=== PATIENT | female | born 2000 ===

== ENCOUNTER 2023-11-29 23:12 | Outpatient (CLI) | payer OTHER, SELFPAY | END 2023-11-29 23:13 | disposition home or self-care (01) | LOC: AMB 12-03 14:54 | PROVIDERS: Visit Provider Family Medicine | DX: F10.129 Alcohol abuse with intoxication, unspecified (principal); R41.82 Altered mental status, unspecified | CPT/HCPCS: A0425; A0427 ==

== ENCOUNTER 2023-11-29 23:52 | Emergency (ER) | payer OTHER, SELFPAY ==
[2023-11-29 23:56] VITALS: BP 129/74; PULSE 85; TEMP 36.1; TEMP 36.5; O2SAT 100
--- NOTE | 2023-11-30 00:02 | ED_ITS ---
HPI - Alcohol General Chief Complaint: Alcohol/Intoxication Stated Complaint: ETOH Time Seen by Provider: 11/29/23 23:58 History of Present Illness HPI narrative: Patient is a 23-year-old woman who goes [employer]. She has been drinking too much tonight and presents after developing nausea and vomiting at home. She has vomited after drinking an undisclosed amount of alcohol and now feels better. No other concerns are noted. She has no recent trauma. She is not . No other concerns. She is not a chronic drinker. Related Data Home Medications Medication Instructions Recorded Confirmed No Known Home Medications 11/29/23 11/29/23 Review of Systems Status of ROS Reports: unobtainable due to mental status Exam Narrative: Exam Narrative: EXAM GENERAL: Patient appears to be intoxicated. EYES: No scleral icterus. LYMPH: No supraclavicular or cervical lymphadenopathy. SKIN: Visible skin seen during exam normal or with benign process only. EXT: No dependent lower extremity pedal edema. HEART: Regular rate and rhythm with no murmurs, rubs, or gallops. LUNGS: Clear to auscultation bilaterally with no crackles or wheezes. ABD: Soft, non tender, non distended. PSYCH: Good eye contact, speech is not pressured. Const: Vital Signs, click to edit/add: Vital Signs - 24 hr 11/29/23 23:56 11/29/23 23:56 Temperature 96.9 F L 97.7 F Pulse Rate [Left P ulse Oximeter] 85 Blood Pressure [Ri ght Upper Arm] 129/74 Pulse Oximetry 100 Oxygen Delivery Me thod Room Air Course Course ED Course: Patient seen and examined will be allowed to rest until she is able to care for herself independently. Vital Signs Vital signs: Initial Vital Signs Temperature 96.9 F L 11/29/23 23:56 Temperature Source Temporal Artery Scan 11/29/23 23:56 Pulse Rate 85 11/29/23 23:56 Blood Pressure 129/74 11/29/23 23:56 Blood Pressure Mean 92 11/29/23 23:56 Pulse Oximetry 100 11/29/23 23:56 Oxygen Delivery Method Room Air 11/29/23 23:56 Vital Signs Temperature 96.9 F L 11/29/23 23:56 Pulse Rate 85 11/29/23 23:56 Blood Pressure 129/74 11/29/23 23:56 Pulse Oximetry 100 11/29/23 23:56 Oxygen Delivery Method Room Air 11/29/23 23:56 Temperature 97.7 F 11/29/23 23:56 Pulse Rate 85 11/29/23 23:56 Blood Pressure 129/74 11/29/23 23:56 Pulse Oximetry 100 11/29/23 23:56 Oxygen Delivery Method Room Air 11/29/23 23:56 MDM - Alcohol MDM Narrative Medical decision making narrative: As above. Differential Diagnosis Differential diagnosis: Likely alcohol withdrawal delirium, hypomagnesemia, alcohol intoxication, alcohol ketoacidosis, alcohol withdrawal syndrome and alcohol withdrawal seizure Discharge Plan Discharge Clinical Impression: Alcoholic intoxication Patient Disposition: Home, Self-Care Condition: Stable Instructions: Alcohol Intoxication (ED) Activity Level: No Restrictions Discharge Diet: Regular Prescriptions: No Action No Known Home Medications Stand Alone Forms: MyHealth Info Instructions
--- NOTE | 2023-11-30 00:13 | ED.NURSE ---
patient ambulatory to the bathroom, steady on feet.
== END 2023-11-30 02:03 | disposition home or self-care (01) ==
LOC: ED 11-30 00:27
PROVIDERS: Emergency Provider Internal Medicine
DX: F10.129 Alcohol abuse with intoxication, unspecified (principal)
CPT/HCPCS: 99283

== ENCOUNTER 2023-12-13 17:04 | Outpatient (CLI) | payer OTHER, SELFPAY ==
--- OUTSIDE RECORDS SUMMARY | 2023-12-18 11:39 | XMS_ITS | Clinical Summary ---
Author Name Unknown Organization [facility] Address [place], [place] [address] Care Team Providers Care Assistant Buyer Name Role Phone None Primary Care Provider Unavailabl e Allergies No known active allergies Medications Medication Sig Dispensed Refills Start Date End Date Status naltrexone (REVIA) 50 mg tablet Take 50 mg by mouth once daily. 0 Active FLUoxetine (PROZAC) 20 mg capsuleIndication s:Major depressive disorder, recurrent, moderate (HC) Take 1 Capsule (20 mg) by mouth once daily. 0 12/17/2023 Active FLUoxetine (PROZAC) 10 mg capsule Take 10 mg by mouth once daily. 0 12/17/2023 Discontinued FLUoxetine (PROZAC) 10 mg capsuleIndication s:Major depressive disorder, recurrent, moderate (HC) Take 1 Capsule (10 mg) by mouth once daily. 30 Capsule 0 12/17/2023 12/17/2023 Discontinued FLUoxetine (PROZAC) 10 mg capsuleIndication s:Major depressive disorder, recurrent, moderate (HC) Take 1 Capsule (10 mg) by mouth once daily. 0 12/17/2023 12/17/2023 Discontinued Active Problems Problem Noted Date Diagnosed Date History of depression 12/17/2023 Adjustment disorder with mixed anxiety and depre ssed mood 12/17/2023 Alcohol abuse 12/17/2023 Resolved Problems Problem Noted Date Diagnosed Date Resolved Date Suicidal ideation 12/17/2023 12/17/2023 Encounters Date Type Department Care Team Description 12/13/2023 11:20 PM DOT COMPLIANCE SPECIALIST - 12/17/2023 12:45 PM DOT COMPLIANCE SPECIALIST Hospital Encounter [facility] [address] [place] [address] Nette Cruz, [facility] Luis E Carson MD Major depressive disorder, recurrent, moderate (HC) (Primary Dx) Discharge Disposition: Home Self Care 12/13/2023 5:56 PM DOT COMPLIANCE SPECIALIST - 12/13/2023 9:49 PM DOT COMPLIANCE SPECIALIST Emergency [facility] [address] [place] [address] Son Duran MD Ball, Julieanne Patricia, MD Depression, unspecified depression type (Primary Dx); Suicidal ideation Discharge Disposition: Psychiatric Hos or Unit 12/13/2023 Travel from Last 3 Months Immunizations Name Administration Dates Next Due Influenza, IIV4 12/16/2023 Social History Tobacco Use Types Packs/Day Years Used Date Smoking Tobacco: Some Days Cigarettes 0 Started: 12/11/2023 Passive Smoke Exposure: Current Smokeless Tobacco: Current Snuff Tobacco Cessation:Ready to Q uit: Yes; Counseling Given: Not Answered Alcohol Use Standard Drinks/Week Comments Yes 14 (1 standard drink = 0.6 oz pure alcohol) 2 drinks a day for the past week PHQ-2 Answer Date Recorded PHQ-2 TOTAL SCORE 0 12/17/2023 Social Connections Answer Date Recorded Frequency of Communication with Friends and Fami ly 4 12/14/2023 Alcohol Use Answer Date Recorded How often do you have a drink containing alcohol ? 4 12/14/2023 How many drinks containing a lcohol do you have on a typical day when you are drinking? 0 12/14/2023 How often do you have five or more drinks on one occasion? 3 12/14/2023 Financial Resource Strain Answer Date R ecorded Difficulty of Paying Living Expenses 3 12/14/2023 Difficulty of Paying Living Expenses Not on file 12/14/2023 Food Insecurity Answer Date Recorded Worried About Running Out of Food in the Last Ye ar 1 12/14/2023 Transportation Needs Answer Date Record ed Lack of Transportation (Medical) 1 12/14/2023 Housing Stability Answer Date Recorded Unable to Pay for Housing in the Last Year 1 12/14/2023 Sex and Gender Information Value Date Recorded Sex Assigned at Not on file Gender Identity Not on file Sexual Orientation Not on file Obstetrics History Last Filed Vital Signs Vital Sign Reading Time Taken Comments Blood Pressure 118/78 12/17/2023 6:23 AM DOT COMPLIANCE SPECIALIST Pulse 75 12/17/2023 6:23 AM DOT COMPLIANCE SPECIALIST Temperature 37.1 ??C (98.7 ??F) 12/17/2023 6:23 AM CS T Respiratory Rate 16 12/17/2023 6:23 AM DOT COMPLIANCE SPECIALIST Oxygen Saturation 98% 12/17/2023 6:23 AM DOT COMPLIANCE SPECIALIST Inhaled Oxygen Concentration - - Weight 73.6 kg (162 lb 3.2 oz) 12/13/2023 11:33 PM DOT COMPLIANCE SPECIALIST Height 154.9 cm (5' 1) 12/13/2023 6:11 PM DOT COMPLIANCE SPECIALIST Body Mass Index 30.65 12/13/2023 6:11 PM DOT COMPLIANCE SPECIALIST Plan of Treatment Not on file Procedures Procedure Name Priority Date/Time Associated Diagnosis Comments TSH Today 12/14/2023 1:44 PM DOT COMPLIANCE SPECIALIST LIPID PANEL Today 12/14/2023 1:44 PM DOT COMPLIANCE SPECIALIST HEPATIC FUNCTION PANEL Today 12/14/2023 1:44 PM DOT COMPLIANCE SPECIALIST HEMOGLOBIN A1C SCREENING Today 12/14/2023 1:44 PM DOT COMPLIANCE SPECIALIST CBC W PLT NO DIFF Today 12/14/2023 1:4 4 PM DOT COMPLIANCE SPECIALIST SODIUM Today 12/14/2023 1:44 PM DOT COMPLIANCE SPECIALIST POTASSIUM Today 12/14/2023 1:44 PM DOT COMPLIANCE SPECIALIST CREATININE Today 12/14/2023 1:44 PM DOT COMPLIANCE SPECIALIST EKG 12 LEAD Routine 12/14/2023 1:39 PM DOT COMPLIANCE SPECIALIST BH STAT DRUG SCREEN STAT 12/14/2023 1 :09 PM DOT COMPLIANCE SPECIALIST URINE STAT 12/13/2023 6:36 PM DOT COMPLIANCE SPECIALIST from Last 3 Months Results * HEMOGLOBIN A1C SCREENING (12/14/2023 1:44 PM DOT COMPLIANCE SPECIALIST) HEMOGLOBIN A1C SCREENING 5.3 <=6.4 % 12/15/2023 8:05 AM DOT COMPLIANCE SPECIALIST [facility] Blood BLOOD SPECIMEN / Unknown Butterfly / Unknown 12/14/2023 1:44 PM DOT COMPLIANCE SPECIALIST 12/14/2023 1:48 PM DOT COMPLIANCE SPECIALIST Narrative [facility] - 12/15/2023 8:05 AM DOT COMPLIANCE SPECIALIST ? (<5.7%) ?Normal ? (5.7% to 6.4%) ? Indicates prediabetes ? (>=6.5%) ? Confirms diabetes Falsely low levels may be seen with: Recent Transfusion, Recent Significant Blood Loss, Hemolytic Diseases, or Falsely elevated levels may be seen with: Untreated Anemias, Splenectomy Tj Villalobos NP CHEMISTRY Performing Organization Address [facility] Co de Phone Number [facility] [address] [place] [address], * TSH (12/14/2023 1:44 PM DOT COMPLIANCE SPECIALIST) Pathologist [facility] TSH 0.45 0.27 - 4.20 uIU/mL 12/14/2023 2:24 PM DOT COMPLIANCE SPECIALIST [facility] Blood BLOOD SPECIMEN / Unknown Butterfly / Unknown 12/14/2023 1:44 PM DOT COMPLIANCE SPECIALIST 12/14/2023 1:48 PM DOT COMPLIANCE SPECIALIST Narrative [facility] - 12/14/2023 2:24 PM DOT COMPLIANCE SPECIALIST In Adults, TSH values between 5.00 and 10.00 uIU/ml do not necessarily indicate the presence of Hypothyroidism. Correlation with clinical findings such as presence of goiter and/or Thyroperoxidase (TPO) Antibody may be helpful. For more information please refer to TAYLER 2004; 291: 228-238. Tj Villalobos NP CHEMISTRY [facility] [place]NAL ZIP [phone] [place] [id number] * CBC W PLT NO DIFF (12/14/2023 1:44 PM DOT COMPLIANCE SPECIALIST) WHITE BLOOD COUNT 6.1 4.5 - 11.0 thou/cu mm 12/14/2023 1:51 PM [facility] RED BLOOD COUNT 4.84 4.00 - 5.20 mil/cu mm 12/14/2023 1:51 PM [facility] HEMOGLOBIN 13.8 12.0 - 16.0 g/dL 12/14/2023 1:51 PM [facility] HEMATOCRIT 40.9 33.0 - 51.0 % 12/14/2023 1:51 PM [facility] MCV 85 80 - 100 fL 12/14/2023 1:51 PM [facility] MCH 28.5 26.0 - 34.0 pg 12/14/2023 1:51 PM [facility] MCHC 33.7 32.0 - 36.0 g/dL 12/14/2023 1:51 PM [facility] RDW 13.7 11.5 - 15.5 % 12/14/2023 1:51 PM [facility] PLATELET COUNT 319 140 - 440 thou/cu mm 12/14/2023 1:51 PM [facility] MPV 10.4 6.5 - 11.0 fL 12/14/2023 1:51 PM [facility] NRBC 0.0 % 12/14/2023 1:51 PM [facility] ABS NRBC 0.0 thou /cu mm 12/14/2023 1:51 PM [facility] Blood BLOOD SPECIMEN / Unknown Butterfly / Unknown 12/14/2023 1:44 PM DOT COMPLIANCE SPECIALIST 12/14/2023 1:48 PM DOT COMPLIANCE SPECIALIST Tj Villalobos NP HEMATOLOGY [facility] [place] ZIP [phone] [place] [address] * SODIUM (12/14/2023 1:44 PM DOT COMPLIANCE SPECIALIST) SODIUM 136 136 - 145 mmol/L 12/14/2023 2:24 PM [facility] Blood BLOOD SPECIMEN / Unknown Butterfly / Unknown 12/14/2023 1:44 PM DOT COMPLIANCE SPECIALIST 12/14/2023 1:48 PM DOT COMPLIANCE SPECIALIST Tj Villalobos NP CHEMISTRY [facility] [place] ZIP [address] [address] [place] [address] * POTASSIUM (12/14/2023 1:44 PM DOT COMPLIANCE SPECIALIST) POTASSIUM 4.4 3.5 - 5.1 mmol/L 12/14/2023 2:24 PM DOT COMPLIANCE SPECIALIST [facility] Blood BLOOD SPECIMEN / Unknown Butterfly / Unknown 12/14/2023 1:44 PM DOT COMPLIANCE SPECIALIST 12/14/2023 1:48 PM DOT COMPLIANCE SPECIALIST Tj Villalobos NP CHEMISTRY Performing Organization Address [facility]/ZIP Co de Phone Number [facility] INTERNAL ZIP [phone] [place] [address] * CREATININE (12/14/2023 1:44 PM DOT COMPLIANCE SPECIALIST) [facility] eGFR >90 >90 mL/min/1.7 3m2 12/14/2023 2:24 PM DOT COMPLIANCE SPECIALIST [facility] Comment:As of 2022, eG FR is calculated by the CKD-EPI creatinine equation without race adjustment. ??eGFR can be influenced by muscle mass, exercise, and diet. ??The reported eGFR is an estimation only and is only applicable if the renal function is stable. CREATININE 0.68 0.50 - 0.90 mg/dL 12/14/2023 2:24 PM DOT COMPLIANCE SPECIALIST [facility] Blood BLOOD SPECIMEN / Unknown Butterfly / Unknown 12/14/2023 1:44 PM DOT COMPLIANCE SPECIALIST 12/14/2023 1:48 PM DOT COMPLIANCE SPECIALIST Tj Villalobos NP CHEMISTRY Performing Organization Address City/[facility]/ZIP Co de Phone Number [facility] INTERNAL ZIP [phone] [place] [phone] * (ABNORMAL) HEPATIC FUNCTION PANEL (12/14/2023 1:44 PM DOT COMPLIANCE SPECIALIST) ALBUMIN 4.9 4.0 - 4.9 g/dL 12/14/2023 2:24 PM [facility] PROTEIN,TOTAL 8.1(H) 6.0 - 8.0 g/dL 12/14/2023 2:24 PM [facility] BILIRUBIN,TOTAL 0.2 0.0 - 1.2 mg/dL 12/14/2023 2:24 PM [facility] BILIRUBIN,DIRECT <0.2 0.0 - 0.3 mg/dL 12/14/2023 2:24 PM [facility] BILIRUBIN,INDIRE CT 12/14/2023 2:24 PM [facility] Comment:Unable to calculate, Direct Bili <0.2 ALK PHOSPHATASE 58 35 - 104 IU/L 12/14/2023 2:24 PM [facility] ALT (SGPT) 13 10 - 35 IU/L 12/14/2023 2:24 PM [facility] AST (SGOT) 18 10 - 35 IU/L 12/14/2023 2:24 PM [facility] Blood BLOOD SPECIMEN / Unknown Butterfly / Unknown 12/14/2023 1:44 PM DOT COMPLIANCE SPECIALIST 12/14/2023 1:48 PM DOT COMPLIANCE SPECIALIST Tj Villalobos NP CHEMISTRY [facility] INTERNAL ZIP [address] [place] [address] * LIPID PANEL (12/14/2023 1:44 PM DOT COMPLIANCE SPECIALIST) CHOLESTEROL,TOTAL 148 100 - 199 mg/dL 12/14/2023 2:24 PM [facility] Comment: Cholesterol, Total Reference Ranges Desirable <200 mg/dL Borderline 200-239 mg/dL High >=240 mg/dL TRIGLYCERIDES 70 <150 mg/dL 12/14/2023 2:24 PM [facility] HDL CHOLESTEROL 53 >40 mg/dL 2:24 PM DOT COMPLIANCE SPECIALIST [facility] NON-HDL CHOLESTEROL 95 <145 mg/dl 12/14/2023 2:24 PM DOT COMPLIANCE SPECIALIST [facility] CHOL/HDL RATIO 2.79 <4.50 12/14/2023 2:24 PM DOT COMPLIANCE SPECIALIST [facility] LDL CHOLESTEROL 81 <=130 mg/dL 12/14/2023 2:24 PM DOT COMPLIANCE SPECIALIST [facility] VLDL CHOLESTEROL 14 <=30 mg/dL 12/14/2023 2:24 PM DOT COMPLIANCE SPECIALIST [facility] PROVIDER ORDERED STATUS RANDOM 12/14/2023 2:24 PM DOT COMPLIANCE SPECIALIST [facility] Blood BLOOD SPECIMEN / Unknown Butterfly / Unknown 12/14/2023 1:44 PM DOT COMPLIANCE SPECIALIST 12/14/2023 1:48 PM DOT COMPLIANCE SPECIALIST Tj Villalobos FLANGE MACHINE OPERATOR CHEMISTRY [facility] INTERNAL ZIP [address] [place] [address] * EKG 12 LEAD (12/14/2023 1:39 PM DOT COMPLIANCE SPECIALIST) Pathologist [facility] Interpretation Normal sinus rhythm with sinus arrhythmia Normal ECG No previous ECGs available BEYOND NOW Ventricular Rate 69 BPM BEYOND NOW Atrial Rate 69 BPM BEYOND NOW P-R Interval 118 ms BEYOND NOW QRS Duration 68 ms BEYOND NOW QT 354 ms BEYOND NOW QTc 379 ms BEYOND NOW P [place] 38 degrees BEYOND NOW R [place] 27 degrees BEYOND NOW T [place] 25 degrees BEYOND NOW 12/14/2023 1:39 PM DOT COMPLIANCE SPECIALIST 12/15/2023 6:03 PM DOT COMPLIANCE SPECIALIST Nette Cruz [facility] EKG ORD BEYOND NOW [place], [place] * (ABNORMAL) COMPREHENSIVE URINE DRUG SCREEN (12/14/2023 1:09 PM DOT COMPLIANCE SPECIALIST) ACETAMINOPHEN URINE NEG <=10 mcg/mL 12/15/2023 4:44 AM DOT COMPLIANCE SPECIALIST [facility] AMPHETAMINE URINE NEG <=500 ng/mL 12/15/2023 4:[address] [facility] BARBITURATE URINE NEG <=200 ng/mL 12/15/2023 4:[address] [facility] BENZODIAZEPINE URINE NEG <=100 ng/mL 12/15/2023 4:[address] [facility] BUPRENORPHRINE URINE NEG <=5 ng/mL 12/15/2023 4:[address] [facility] COCAINE METAB URINE NEG <=300 ng/mL 12/15/2023 4:[address] [facility] ETHANOL URINE NEG <=10 mg/dL 12/15/2023 4:[address] [facility] FENTANYL URINE NEG <=4 ng/mL 12/15/2023 4:[address] [facility] METHADONE URINE NEG <=300 ng/mL 12/15/2023 4:[address] [facility] OPIATES URINE NEG <=300 ng/mL 12/15/2023 4:[address] [facility] OXYCODONE URINE NEG <=100 ng/mL 12/15/2023 4:[address] [facility] PCP URINE NEG <=25 ng/mL 12/15/2023 4:[address] [facility] SALICYLATE URINE NEG <=10 mg/dL 12/15/2023 4:[address] [facility] THC 50 URINE POS(A) <=50 ng/mL 12/15/2023 4:[address] [facility] MASS SPECTROMETRY URINE See Below 12/15/2023 4:[address] [facility] Comment:No other basic or ne utral drugs found. Urine URINE SPECIMEN / Unknown Non-Blood / Unknown 12/14/2023 1:09 PM DOT COMPLIANCE SPECIALIST 12/14/2023 1:[address] [facility] - 12/15/2023 4:44 AM DOT COMPLIANCE SPECIALIST Release to patient->Immediate Tj Villalobos NP URINE [facility] [address] [facility] [address] [place] [address], * URINE (12/13/2023 6:36 PM DOT COMPLIANCE SPECIALIST) ,URIN E Negative Negative 12/13/2023 6:48 PM DOT COMPLIANCE SPECIALIST [facility] Urine URINE SPECIMEN / Unknown Non-Blood / Unknown 12/13/2023 6:36 PM DOT COMPLIANCE SPECIALIST 12/13/2023 6:40 PM DOT COMPLIANCE SPECIALIST Son Duran MD URINE [facility] [address] [place] [address] from Last 3 Months Advance Directives Latest Code Status on File Code Status Date Activated Date Inactivated Comments Full Code 12/14/2023 1:02 AM 12/17/2023 3:51 PM Question Answer Comments Code Status Discussion: Not Discussed Care Teams Assistant Buyer Relationship Specialty Start Date End Date None . PCP - General 12/13/23
== END 2023-12-13 17:05 | disposition home or self-care (01) ==
LOC: AMB 12-18 11:36
PROVIDERS: Visit Provider Emergency Medicine
DX: R45.851 Suicidal ideations (principal)
CPT/HCPCS: A0425; A0429

== ENCOUNTER 2024-01-08 17:00 | Outpatient (CLI) | payer OTHER, SELFPAY | END 2024-01-08 17:01 | disposition home or self-care (01) | LOC: AMB 01-14 11:43 | PROVIDERS: Visit Provider Student in an Organized Health Care Education/Training Program | DX: R45.851 Suicidal ideations (principal) | CPT/HCPCS: A0425; A0429 ==

== ENCOUNTER 2024-01-16 03:16 | Outpatient (CLI) | payer OTHER, SELFPAY | END 2024-01-16 03:17 | disposition home or self-care (01) | LOC: AMB 01-19 07:45 | PROVIDERS: Visit Provider Family Medicine | DX: F10.129 Alcohol abuse with intoxication, unspecified (principal) | CPT/HCPCS: A0425; A0427 ==

== ENCOUNTER 2024-01-16 03:41 | Emergency (ER) | payer OTHER, SELFPAY ==
[2024-01-16] VITALS (52 sets, daily range): BP systolic 96–123; BP diastolic 45–83; PULSE 78–101; RESP 14–18; TEMP 36.4–37.2; O2SAT 97–100
--- NOTE | 2024-01-16 03:54 | ED_ITS ---
HPI - General Adult General Chief complaint: Overdose <Tory Navas MD - Last Filed: 01/17/24 23:50> Stated complaint: overdose <Tory Navas MD - Last Filed: 01/17/24 23:50> Time Seen by Provider: 01/16/24 03:49 <Tory Navas MD - Last Filed: 01/17/24 23:50> Source: patient and EMS <Tory Navas MD - Last Filed: 01/17/24 23:50> Mode of arrival: EMS <Tory Navas MD - Last Filed: 01/17/24 23:50> History of Present Illness HPI narrative: 23-year-old female presents to the emergency department by EMS for evaluation of alcohol intoxication with intentional overdose. Apparently patient was evaluated by campus security earlier in the day where she was heavily intoxicated with alcohol. They could not find her alcohol stash. She was doing pretty well so they left her in her soon housing. She continue drinking, found by EMS to have 1.75 L bottle of vodka nearly gone. She does not confess how much she drink recently. They also found an empty bottle of Tessalon Perles, unknown ingestion time. She reports that she took these with intent of self-harm. She could not have taken more than 8 tablets. She may have also taken ibuprofen but is cryptic in her confession is regarding this. She reports that she is a student from [employer], she is in her 1st year of college here, she does not yet have a major. When I ask about how school is going grades, etc., she becomes quiet again. She initially declines to answer about questions with her family, relationships and other potential social stressors. I review her chart and see that she was in the ED with alcohol intoxication about 2 months ago also. It sounds as though she has been drinking heavily. She denies fever, injury or trauma. She denies prior history of suicide attempt or mental health hospitalization. Denies that she takes any medications. She attends [employer]. Denies illicit drugs to me. EMS placed an IV line and started fluids, did not administer any medications. They reported GCS of 13-14. No other signs of drugs, trauma or paraphernalia noted at the scene. Past medical history benign per her report, no major long-term health problems. Denies chance of . Denies drug use, 1st overdose attempt. No family in the area, all overseas. ROS unreliable, patient guarded with her answers. <Tory Navas MD - Last Filed: 01/17/24 23:50> Related Data Home medications: Home Medications Medication Instructions Recorded Confirmed No Known Home Medications 11/29/23 01/17/24 <Tory Navas MD - Last Filed: 01/17/24 23:50> Allergies/adverse reactions: Allergies Allergy/AdvReac Type Severity Reaction Status Date / Time No Known Drug Allergies Allergy Verified 01/17/24 05:45 <Tory Navas MD - Last Filed: 01/17/24 23:50> [facility] Social History: Social History Smoking Status: Never smoker How often do you have a drink containing alcohol: 4 or more times a week How many standard drinks containing alcohol do you have on a typical day: 5 or 6 How often do you have six or more drinks on one occasion: Monthly AUDIT-C Alcohol total score: 8 Non-prescribed substance use: denies use <Tory Navas MD - Last Filed: 01/17/24 23:50> Exam Const: Vital Signs, click to edit/add: Vital Signs - 24 hr 01/16/24 03:49 01/16/24 04:00 01/16/24 04:01 Temperature 97.5 F L Pulse Rate 91 96 Pulse Rate [Pulse Oximeter] 98 Respiratory Rate 14 Blood Pressure 97/68 Blood Pressure [Ri ght Upper Arm] 123/83 Pulse Oximetry 100 99 99 Oxygen Delivery Me thod Room Air 01/16/24 04:02 01/16/24 04:26 01/16/24 04:30 Temperature Pulse Rate 95 97 100 Pulse Rate [Pulse Oximeter] Respiratory Rate Blood Pressure Blood Pressure [Ri ght Upper Arm] Pulse Oximetry 99 98 99 Oxygen Delivery Me thod 01/16/24 04:35 01/16/24 04:36 01/16/24 04:46 Temperature Pulse Rate 98 95 Pulse Rate [Pulse Oximeter] Respiratory Rate Blood Pressure 123/77 113/57 L Blood Pressure [Ri ght Upper Arm] Pulse Oximetry 97 98 Oxygen Delivery Me thod 01/16/24 05:01 01/16/24 05:16 01/16/24 05:31 Temperature Pulse Rate Pulse Rate [Pulse Oximeter] Respiratory Rate Blood Pressure 101/62 104/49 L 110/52 L Blood Pressure [Ri ght Upper Arm] Pulse Oximetry Oxygen Delivery Me thod 01/16/24 05:46 01/16/24 06:01 01/16/24 06:16 Temperature Pulse Rate Pulse Rate [Pulse Oximeter] Respiratory Rate Blood Pressure 105/48 L 101/54 L 105/53 L Blood Pressure [Ri ght Upper Arm] Pulse Oximetry Oxygen Delivery Me thod 01/16/24 06:31 01/16/24 06:46 01/16/24 07:01 Temperature Pulse Rate Pulse Rate [Pulse Oximeter] Respiratory Rate Blood Pressure 103/53 L 105/57 L 99/45 L Blood Pressure [Ri ght Upper Arm] Pulse Oximetry Oxygen Delivery Me thod 01/16/24 07:16 01/16/24 07:31 01/16/24 07:47 Temperature Pulse Rate Pulse Rate [Pulse Oximeter] Respiratory Rate Blood Pressure 96/50 L 96/52 L 105/61 Blood Pressure [Ri ght Upper Arm] Pulse Oximetry Oxygen Delivery Me thod 01/16/24 08:01 01/16/24 08:16 01/16/24 08:23 Temperature Pulse Rate 86 Pulse Rate [Pulse Oximeter] Respiratory Rate Blood Pressure 102/58 L 108/65 110/65 Blood Pressure [Ri ght Upper Arm] Pulse Oximetry 100 Oxygen Delivery Me thod 01/16/24 08:25 01/16/24 08:26 01/16/24 08:30 Temperature 98.2 F Pulse Rate 101 H 81 Pulse Rate [Pulse Oximeter] 84 Respiratory Rate 16 Blood Pressure Blood Pressure [Ri ght Upper Arm] 110/65 Pulse Oximetry 100 99 98 Oxygen Delivery Me thod Room Air 01/16/24 08:34 01/16/24 08:45 01/16/24 08:49 Temperature Pulse Rate 80 90 81 Pulse Rate [Pulse Oximeter] Respiratory Rate Blood Pressure Blood Pressure [Ri ght Upper Arm] Pulse Oximetry 98 99 99 Oxygen Delivery Me thod 01/16/24 09:00 01/16/24 09:04 01/16/24 09:15 Temperature Pulse Rate 86 79 84 Pulse Rate [Pulse Oximeter] Respiratory Rate Blood Pressure Blood Pressure [Ri ght Upper Arm] Pulse Oximetry 99 99 99 Oxygen Delivery Me thod 01/16/24 09:30 01/16/24 09:45 01/16/24 10:00 Temperature Pulse Rate 83 85 79 Pulse Rate [Pulse Oximeter] Respiratory Rate Blood Pressure Blood Pressure [Ri ght Upper Arm] Pulse Oximetry 99 99 99 Oxygen Delivery Me thod 01/16/24 10:15 01/16/24 10:30 01/16/24 10:34 Temperature Pulse Rate 87 84 100 Pulse Rate [Pulse Oximeter] Respiratory Rate Blood Pressure 119/70 Blood Pressure [Ri ght Upper Arm] Pulse Oximetry 98 99 100 Oxygen Delivery Me thod 01/16/24 10:35 01/16/24 10:45 01/16/24 11:00 Temperature 99.0 F Pulse Rate 82 87 Pulse Rate [Pulse Oximeter] 89 Respiratory Rate 18 Blood Pressure Blood Pressure [Ri ght Upper Arm] 119/70 Pulse Oximetry 100 99 99 Oxygen Delivery Me thod Room Air 01/16/24 11:15 01/16/24 11:30 01/16/24 11:45 Temperature Pulse Rate 100 101 H 92 Pulse Rate [Pulse Oximeter] Respiratory Rate Blood Pressure Blood Pressure [Ri ght Upper Arm] Pulse Oximetry 99 98 99 Oxygen Delivery Me thod 01/16/24 12:00 01/16/24 12:15 01/16/24 12:30 Temperature Pulse Rate 80 78 85 Pulse Rate [Pulse Oximeter] Respiratory Rate Blood Pressure Blood Pressure [Ri ght Upper Arm] Pulse Oximetry 99 98 99 Oxygen Delivery Me thod 01/16/24 12:45 01/16/24 12:57 01/16/24 12:57 Temperature 98.5 F Pulse Rate 81 81 Pulse Rate [Pulse Oximeter] 92 Respiratory Rate 15 Blood Pressure 103/66 Blood Pressure [Ri ght Upper Arm] 103/66 Pulse Oximetry 99 99 100 Oxygen Delivery Me thod Room Air 01/16/24 12:57 01/16/24 13:00 01/16/24 13:15 Temperature Pulse Rate 81 83 78 Pulse Rate [Pulse Oximeter] Respiratory Rate Blood Pressure 103/66 Blood Pressure [Ri ght Upper Arm] Pulse Oximetry 100 98 98 Oxygen Delivery Me thod <Tory Navas MD - Last Filed: 01/17/24 23:50> Vital Signs, click to edit/add: Vital Signs - 24 hr 01/16/24 03:49 01/16/24 04:00 01/16/24 04:01 Temperature 97.5 F L Pulse Rate 91 96 Pulse Rate [Pulse Oximeter] 98 Respiratory Rate 14 Blood Pressure 97/68 Blood Pressure [Ri ght Upper Arm] 123/83 Pulse Oximetry 100 99 99 Oxygen Delivery Me thod Room Air 01/16/24 04:02 01/16/24 04:26 01/16/24 04:30 Temperature Pulse Rate 95 97 100 Pulse Rate [Pulse Oximeter] Respiratory Rate Blood Pressure Blood Pressure [Ri ght Upper Arm] Pulse Oximetry 99 98 99 Oxygen Delivery Pa thod 01/16/24 04:35 01/16/24 04:36 01/16/24 04:46 Temperature Pulse Rate 98 95 Pulse Rate [Pulse Oximeter] Respiratory Rate Blood Pressure 123/77 113/57 L Blood Pressure [Ri ght Upper Arm] Pulse Oximetry 97 98 Oxygen Delivery Pa thod 01/16/24 05:01 01/16/24 05:16 01/16/24 05:31 Temperature Pulse Rate Pulse Rate [Pulse Oximeter] Respiratory Rate Blood Pressure 101/62 104/49 L 110/52 L Blood Pressure [Ri ght Upper Arm] Pulse Oximetry Oxygen Delivery Pa thod 01/16/24 05:46 01/16/24 06:01 01/16/24 06:16 Temperature Pulse Rate Pulse Rate [Pulse Oximeter] Respiratory Rate Blood Pressure 105/48 L 101/54 L 105/53 L Blood Pressure [Ri ght Upper Arm] Pulse Oximetry Oxygen Delivery Pa thod 01/16/24 06:31 01/16/24 06:46 01/16/24 07:01 Temperature Pulse Rate Pulse Rate [Pulse Oximeter] Respiratory Rate Blood Pressure 103/53 L 105/57 L 99/45 L Blood Pressure [Ri ght Upper Arm] Pulse Oximetry Oxygen Delivery Pa thod 01/16/24 07:16 01/16/24 07:31 01/16/24 07:47 Temperature Pulse Rate Pulse Rate [Pulse Oximeter] Respiratory Rate Blood Pressure 96/50 L 96/52 L 105/61 Blood Pressure [Ri ght Upper Arm] Pulse Oximetry Oxygen Delivery Pa thod 01/16/24 08:01 01/16/24 08:16 01/16/24 08:23 Temperature Pulse Rate 86 Pulse Rate [Pulse Oximeter] Respiratory Rate Blood Pressure 102/58 L 108/65 110/65 Blood Pressure [Ri ght Upper Arm] Pulse Oximetry 100 Oxygen Delivery Me thod 01/16/24 08:25 01/16/24 08:26 01/16/24 08:30 Temperature 98.2 F Pulse Rate 101 H 81 Pulse Rate [Pulse Oximeter] 84 Respiratory Rate 16 Blood Pressure Blood Pressure [Ri ght Upper Arm] 110/65 Pulse Oximetry 100 99 98 Oxygen Delivery Me od Room Air 01/16/24 08:34 01/16/24 08:45 01/16/24 08:49 Temperature Pulse Rate 80 90 81 Pulse Rate [Pulse Oximeter] Respiratory Rate Blood Pressure Blood Pressure [Ri ght Upper Arm] Pulse Oximetry 98 99 99 Oxygen Delivery Pa thod 01/16/24 09:00 01/16/24 09:04 01/16/24 09:15 Temperature Pulse Rate 86 79 84 Pulse Rate [Pulse Oximeter] Respiratory Rate Blood Pressure Blood Pressure [Ri ght Upper Arm] Pulse Oximetry 99 99 99 Oxygen Delivery Pa thod 01/16/24 09:30 01/16/24 09:45 01/16/24 10:00 Temperature Pulse Rate 83 85 79 Pulse Rate [Pulse Oximeter] Respiratory Rate Blood Pressure Blood Pressure [Ri ght Upper Arm] Pulse Oximetry 99 99 99 Oxygen Delivery Pa thod 01/16/24 10:15 01/16/24 10:30 01/16/24 10:34 Temperature Pulse Rate 87 84 100 Pulse Rate [Pulse Oximeter] Respiratory Rate Blood Pressure 119/70 Blood Pressure [Ri ght Upper Arm] Pulse Oximetry 98 99 100 Oxygen Delivery Me thod 01/16/24 10:35 01/16/24 10:45 01/16/24 11:00 Temperature 99.0 F Pulse Rate 82 87 Pulse Rate [Pulse Oximeter] 89 Respiratory Rate 18 Blood Pressure Blood Pressure [Ri ght Upper Arm] 119/70 Pulse Oximetry 100 99 99 Oxygen Delivery Me thod Room Air 01/16/24 11:15 01/16/24 11:30 01/16/24 11:45 Temperature Pulse Rate 100 101 H 92 Pulse Rate [Pulse Oximeter] Respiratory Rate Blood Pressure Blood Pressure [Ri ght Upper Arm] Pulse Oximetry 99 98 99 Oxygen Delivery Me thod 01/16/24 12:00 01/16/24 12:15 01/16/24 12:30 Temperature Pulse Rate 80 78 85 Pulse Rate [Pulse Oximeter] Respiratory Rate Blood Pressure Blood Pressure [Ri ght Upper Arm] Pulse Oximetry 99 98 99 Oxygen Delivery Me thod 01/16/24 12:45 01/16/24 12:57 01/16/24 12:57 Temperature 98.5 F Pulse Rate 81 81 Pulse Rate [Pulse Oximeter] 92 Respiratory Rate 15 Blood Pressure 103/66 Blood Pressure [Ri ght Upper Arm] 103/66 Pulse Oximetry 99 99 100 Oxygen Delivery Me thod Room Air 01/16/24 12:57 01/16/24 13:00 01/16/24 13:15 Temperature Pulse Rate 81 83 78 Pulse Rate [Pulse Oximeter] Respiratory Rate Blood Pressure 103/66 Blood Pressure [Ri ght Upper Arm] Pulse Oximetry 100 98 98 Oxygen Delivery Me thod <John Chandler DO - Last Filed: 01/16/24 13:38> Documenting provider has reviewed patient's vital signs: yes <Tory Navas MD - Last Filed: 01/17/24 23:50> Common normals: alert <Tory Navas MD - Last Filed: 01/17/24 23:50> Other: Intoxicated but will answer questions on her terms. GCS for me is 14. Makes good eye contact but seems to deliberately ignore certain questions but will answer others quickly as expected. Appears well-nourished, well-hydrated with good hygiene. <Tory Navas MD - Last Filed: 01/17/24 23:50> HENMT: Common normals: normocephalic and head/scalp atraumatic <Tory Navas MD - Last Filed: 01/17/24 23:50> Head and scalp: normocephalic and atraumatic <Tory Navas MD - Last Filed: 01/17/24 23:50> Face and sinus: normal facial exam <Tory Navas MD - Last Filed: 01/17/24 23:50> Mouth: oral and palatal mucosa normal <MD Rashid Blackwell Last Filed: 01/17/24 23:50> Throat: posterior oropharynx normal <MD Rashid Blackwell Last Filed: 01/17/24 23:50> Eye: Common normals: PERRL and conjunctivae normal <MD Rashid Blackwell Last Filed: 01/17/24 23:50> General eye: normal appearance of both eyes <MD Rashid Blackwell Last Filed: 01/17/24 23:50> Conjunctiva: conjunctiva(e) normal <MD Rashid Blackwell Last Filed: 01/17/24 23:50> Pupil: PERRL <MD Rashid Blackwell Last Filed: 01/17/24 23:50> Neck & C-Spine: Common normals: full ROM and no lymphadenopathy <MD Rashid Blackwell Last Filed: 01/17/24 23:50> Resp: Common normals: normal respiratory effort, no use of accessory muscles and clear to auscultation bilaterally <MD Rashid Blackwell Last Filed: 01/17/24 23:50> Effort & inspection: able to speak in complete sentences <MD Rashid Blackwell Last Filed: 01/17/24 23:50> Auscultation: clear to auscultation bilaterally <MD Rashid Blackwell Last Filed: 01/17/24 23:50> Cardio: Common normals: regular rate, regular rhythm, S1 normal heart sound, S2 normal heart sound and no murmurs <MD Rashid Blackwell Last Filed: 01/17/24 23:50> Rate: regular rate <MD Rashid Blackwell Last Filed: 01/17/24 23:50> Rhythm: regular rhythm <MD Rashid Blackwell Last Filed: 01/17/24 23:50> Heart sounds: S1 normal and S2 normal <MD Rashid Blackwell Last Filed: 01/17/24 23:50> GI: Common normals: Normal to inspection, nondistended, normoactive bowel sounds present, soft to palpation, non-tender, no hepatosplenomegaly and no masses <Tory Navas MD - Last Filed: 01/17/24 23:50> Palpation: soft and no hepatosplenomegaly <Tory Navas MD - Last Filed: 01/17/24 23:50> Extremity: Common normals: normal to inspection and normal capillary refill <Tory Navas MD - Last Filed: 01/17/24 23:50> Neuro: Common normals: moves all extremities and no focal motor deficits <Tory Navas MD - Last Filed: 01/17/24 23:50> Sensorium/orientation: alert <Tory Navas MD - Last Filed: 01/17/24 23:50> Cranial nerves: CN normal except as noted <Tory Navas MD - Last Filed: 01/17/24 23:50> Speech: speech normal <Tory Navas MD - Last Filed: 01/17/24 23:50> Motor exam: no tremor noted <Tory Navas MD - Last Filed: 01/17/24 23:50> Psych: Appearance: grossly normal <Tory Navas MD - Last Filed: 01/17/24 23:50> Other: Intoxicated, guarded. Difficult to assess affect insight in her intoxicated state. <Tory Navas MD - Last Filed: 01/17/24 23:50> Skin: Common normals: no rashes or lesions noted <Tory Navas MD - Last Filed: 01/17/24 23:50> Narrative: No signs of self injury or trauma. <Tory Navas MD - Last Filed: 01/17/24 23:50> General skin exam: no rashes or lesions noted <Tory Navas MD - Last Filed: 01/17/24 23:50> Course Course ED Course: Marked alcohol intoxication with possible suicide attempt. Ingestion of Tessalon, heavy amounts of alcohol and possibly ibuprofen. She is very guarded and I do not think she would fully disclose all potential substances. Will placed on cardiac cath tech, EKG, basic labs. EMS team did contact poison Control and they said that watch for QT prolongation as their only concern. Will likely be too intoxicated to perform telehealth assessment until daylight hours. Will give 4 mg of Zofran to prevent vomiting and start 1 L of normal saline. Update: Initial EKG showing no signs of QT prolongation. <Tory Navas MD - Last Filed: 01/17/24 23:50> Vital Signs Vital signs: Initial Vital Signs Temperature 97.5 F L 01/16/24 03:49 Temperature Source Temporal Artery Scan 01/16/24 03:49 Pulse Rate 98 01/16/24 03:49 Respiratory Rate 14 01/16/24 03:49 Blood Pressure 123/83 01/16/24 03:49 Blood Pressure Mean 96 01/16/24 03:49 Blood Pressure Position Supine 01/16/24 03:49 Pulse Oximetry 100 01/16/24 03:49 Oxygen Delivery Method Room Air 01/16/24 03:49 Vital Signs Temperature 97.5 F L 01/16/24 03:49 Pulse Rate 98 01/16/24 03:49 Respiratory Rate 14 01/16/24 03:49 Blood Pressure 123/83 01/16/24 03:49 Pulse Oximetry 100 01/16/24 03:49 Oxygen Delivery Method Room Air 01/16/24 03:49 Temperature 98.5 F 01/16/24 12:57 Pulse Rate 78 01/16/24 13:15 Respiratory Rate 15 01/16/24 12:57 Blood Pressure 103/66 01/16/24 12:57 Pulse Oximetry 98 01/16/24 13:15 Oxygen Delivery Method Room Air 01/16/24 12:57 <Tory Navas MD - Last Filed: 01/17/24 23:50> Initial Vital Signs Temperature 97.5 F L 01/16/24 03:49 Temperature Source Temporal Artery Scan 01/16/24 03:49 Pulse Rate 98 01/16/24 03:49 Respiratory Rate 14 01/16/24 03:49 Blood Pressure 123/83 01/16/24 03:49 Blood Pressure Mean 96 01/16/24 03:49 Blood Pressure Position Supine 01/16/24 03:49 Pulse Oximetry 100 01/16/24 03:49 Oxygen Delivery Method Room Air 01/16/24 03:49 Vital Signs Temperature 97.5 F L 01/16/24 03:49 Pulse Rate 98 01/16/24 03:49 Respiratory Rate 14 01/16/24 03:49 Blood Pressure 123/83 01/16/24 03:49 Pulse Oximetry 100 01/16/24 03:49 Oxygen Delivery Method Room Air 01/16/24 03:49 Temperature 98.5 F 01/16/24 12:57 Pulse Rate 78 01/16/24 13:15 Respiratory Rate 15 01/16/24 12:57 Blood Pressure 103/66 01/16/24 12:57 Pulse Oximetry 98 01/16/24 13:15 Oxygen Delivery Method Room Air 01/16/24 12:57 <John Chandler DO - Last Filed: 01/16/24 13:38> Medications Administered Medications: Discontinued Medications Generic Name Dose Route Start Last Admin Trade Name Freq PRN Reason Stop Dose Admin Sodium Chloride 1,000 mls @ 500 mls/hr 01/16/24 03:50 01/16/24 07:21 0.9 % Sodium Chloride 1000 Ml IV 01/16/24 05:49 Infused .Q2H ERICA Infusion Ondansetron HCl 4 mg 01/16/24 03:50 01/16/24 04:25 Ondansetron 2 Mg/Ml Inj IVP 01/16/24 03:51 4 mg ONCE ONE Administration <Tory Navas MD - Last Filed: 01/17/24 23:50> Discontinued Medications Generic Name Dose Route Start Last Admin Trade Name Freq PRN Reason Stop Dose Admin Sodium Chloride 1,000 mls @ 500 mls/hr 01/16/24 03:50 01/16/24 07:21 0.9 % Sodium Chloride 1000 Ml IV 01/16/24 05:49 Infused .Q2H ERICA Infusion Ondansetron HCl 4 mg 01/16/24 03:50 01/16/24 04:25 Ondansetron 2 Mg/Ml Inj IVP 01/16/24 03:51 4 mg ONCE ONE Administration <John Chandler DO - Last Filed: 01/16/24 13:38> Medical Decision Making MDM Narrative Medical decision making narrative: Patient was signed out to me pending DAC assessment. After they assessed the patient they are in agreement that she is safe for discharge. Patient is agreeable to this plan. She will be discharged home. No other concerns or questions were brought up by the patient during my shift. <John Chandler DO - Last Filed: 01/16/24 13:38> Lab Data Lab results reviewed: Yes I reviewed the patient's lab results <Tory Navas MD - Last Filed: 01/17/24 23:50> Lab results narrative: Reassuring. Alcohol level 0.09, a little over the legal limit, will need 4 hours to sober up prior to telehealth assessment. <Tory Navas MD - Last Filed: 01/17/24 23:50> Labs: Lab Results 01/16/24 01/16/24 Range/Units 04:00 04:40 WBC 7.60 (4.50-11.00) K/uL RBC 4.50 (4.00-5.20) m/uL Hgb 12.9 (12.0-16.0) gm/dL Hct 38.5 (33.0-51.0) % MCV 86 (80-100) fL MCH 29 (26-34) pg MCHC 34 (32-36) gm/dL RDW Coeff of Wes 13.6 (11.5-15.5) % Plt Count 316 (140-440) K/uL Neut % (Auto) 61.6 (42.0-72.0) % Lymph % (Auto) 31.4 (20-44) % [place] % (Auto) 5.9 (0.0-11.0) % Eos % (Auto) 0.5 (0.0-7.0) % Baso % (Auto) 0.5 (0.0-3.0) % Neut # (Auto) 4.67 (1.7-7.0) K/uL Lymph # (Auto) 2.39 (0.90-2.90) K/uL [place] # (Auto) 0.40 (0.00-0.90) K/UL Eos # (Auto) 0.04 (0.00-0.50) K/uL Baso # (Auto) 0.04 (0.00-0.30) K/uL Abs Immat Gran (auto) 0.01 (0.00-0.30) K/uL Imm/Tot Granulo (auto) 0.1 % Total Bilirubin 0.4 (0.1-1.5) mg/dL Direct Bilirubin 0.2 (0.0-0.5) mg/dL AST 20 (12-35) U/L ALT 12 (4-35) U/L Alkaline Phosphatase 60 (40-150) U/L Total Protein 8.0 (6.0-8.3) g/dL Albumin 4.6 (3.3-5.0) g/dL HCG, Qual Negative (Negative) Salicylates < 1.0 L (1.0-10) mg/dL Urine Opiates Screen Negative (Negative) Ur Oxycodone Screen Negative (Negative) Urine Methadone Screen Negative (Negative) Acetaminophen < 10.0 L (10.0-30.0) ug/mL Ur Barbiturates Screen Negative (Negative) U Tricyclic Antidepress Negative (Negative) Ur Phencyclidine Scrn Negative (Negative) Ur Amphetamines Screen Negative (Negative) U Methamphetamines Scrn Negative (Negative) U Benzodiazepines Scrn Negative (Negative) Urine Cocaine Screen Negative (Negative) U Marijuana (THC) Screen POSITIVE A (Negative) Ur Drug Screen Comment See Note Ethyl Alcohol 0.09 H (0.01-0.03) % <Tory Navas MD - Last Filed: 01/17/24 23:50> Lab Results 01/16/24 01/16/24 Range/Units 04:00 04:40 WBC 7.60 (4.50-11.00) K/uL RBC 4.50 (4.00-5.20) m/uL Hgb 12.9 (12.0-16.0) gm/dL Hct 38.5 (33.0-51.0) % MCV 86 (80-100) fL MCH 29 (26-34) pg MCHC 34 (32-36) gm/dL RDW Coeff of Wes 13.6 (11.5-15.5) % Plt Count 316 (140-440) K/uL Neut % (Auto) 61.6 (42.0-72.0) % Lymph % (Auto) 31.4 (20-44) % [place] % (Auto) 5.9 (0.0-11.0) % Eos % (Auto) 0.5 (0.0-7.0) % Baso % (Auto) 0.5 (0.0-3.0) % Neut # (Auto) 4.67 (1.7-7.0) K/uL Lymph # (Auto) 2.39 (0.90-2.90) K/uL [place] # (Auto) 0.40 (0.00-0.90) K/UL Eos # (Auto) 0.04 (0.00-0.50) K/uL Baso # (Auto) 0.04 (0.00-0.30) K/uL Abs Immat Gran (auto) 0.01 (0.00-0.30) K/uL Imm/Tot Granulo (auto) 0.1 % Total Bilirubin 0.4 (0.1-1.5) mg/dL Direct Bilirubin 0.2 (0.0-0.5) mg/dL AST 20 (12-35) U/L ALT 12 (4-35) U/L Alkaline Phosphatase 60 (40-150) U/L Total Protein 8.0 (6.0-8.3) g/dL Albumin 4.6 (3.3-5.0) g/dL HCG, Qual Negative (Negative) Salicylates < 1.0 L (1.0-10) mg/dL Urine Opiates Screen Negative (Negative) Ur Oxycodone Screen Negative (Negative) Urine Methadone Screen Negative (Negative) Acetaminophen < 10.0 L (10.0-30.0) ug/mL Ur Barbiturates Screen Negative (Negative) U Tricyclic Antidepress Negative (Negative) Ur Phencyclidine Scrn Negative (Negative) Ur Amphetamines Screen Negative (Negative) U Methamphetamines Scrn Negative (Negative) U Benzodiazepines Scrn Negative (Negative) Urine Cocaine Screen Negative (Negative) U Marijuana (THC) Screen POSITIVE A (Negative) Ur Drug Screen Comment See Note Ethyl Alcohol 0.09 H (0.01-0.03) % <John Chandler DO - Last Filed: 01/16/24 13:38> ECG Data Attestation: I personally reviewed and interpreted this ECG as follows: <Tory Navas MD - Last Filed: 01/17/24 23:50> Prior ECG tracings: not available for review <Tory Navas MD - Last Filed: 01/17/24 23:50> Interpretation: Normal sinus rhythm, rate 97. Normal intervals and axis. No significant ST or T-wave abnormalities. Normal EKG <Tory Navas MD - Last Filed: 01/17/24 23:50> Discharge Plan Discharge Clinical Impression: Alcohol abuse Depression Qualifiers: Depression Type: unspecified Qualified Code(s): F32.A - Depression, unspecified <Tory Navas MD - Last Filed: 01/17/24 23:50> Patient Disposition: Home, Self-Care <Tory Navas MD - Last Filed: 01/17/24 23:50> Condition: Improved <Tory Navas MD - Last Filed: 01/17/24 23:50> Instructions: Depression (ED), Abuse of Alcohol (ED) <Tory Navas MD - Last Filed: 01/17/24 23:50> Additional Instructions: Make sure to follow-up with your psychiatrist and therapist. Recommend you get any program for your alcohol abuse. Return for new or worsening symptoms <Tory Navas MD - Last Filed: 01/17/24 23:50> Prescriptions: No Action No Known Home Medications <Tory Navas MD - Last Filed: 01/17/24 23:50> Follow Up/Referrals: Provider,Not a Local [Primary Care Provider] - <Tory Navas MD - Last Filed: 01/17/24 23:50> Stand Alone Forms: My[employer] Info Instructions <Tory Navas MD - Last Filed: 01/17/24 23:50>
[2024-01-16 04:05] LABS: Basophils Absolute Auto 0.04 K/uL (0.00-0.30); Basophils Percent Auto 0.5 % (0.0-3.0); Eosinophils Absolute Auto 0.04 K/uL (0.00-0.50); Eosinophils Percent Auto 0.5 % (0.0-7.0); Hematocrit 38.5 % (33.0-51.0); Hemoglobin* 12.9 gm/dL (12.0-16.0); Immature Granulocytes Abs Auto 0.01 K/uL (0.00-0.30); Immature Granulocytes Pct Auto 0.1 %; Lymphocytes Absolute Auto 2.39 K/uL (0.90-2.90); Lymphocytes Percent Auto 31.4 % (20-44); Mean Corpuscular HGB Conc 34 gm/dL (32-36); Mean Corpuscular Hemoglobin 29 pg (26-34); Mean Corpuscular Volume 86 fL (80-100); Monocytes Percent Auto 5.9 % (0.0-11.0); Neutrophils Absolute Auto 4.67 K/uL (1.7-7.0); Neutrophils Percent Auto 61.6 % (42.0-72.0); Platelet Count* 316 K/uL (140-440); RDW Coefficient of Variation % 13.6 % (11.5-15.5)
--- NOTE | 2024-01-16 04:06 | PC.NURSE ---
patient gives verbal consent to give update to [facility] staff, [facility] [employer] staff calls for update; informed patient is here and being evaluated.
[2024-01-16 04:09] LABS: Slide Review Reflex No
[2024-01-16 04:18] LABS: Albumin* 4.6 g/dL (3.3-5.0)
[2024-01-16] MEDS: 0.9 % SODIUM CHLORIDE 1000 ml 1,000 ML 500 ML IV (04:19)
[2024-01-16 04:21] LABS: Alanine Aminotransferase* 12 U/L (4-35); Alkaline Phosphatase* 60 U/L (40-150); Aspartate Amino Transferase* 20 U/L (12-35); Bilirubin Direct* 0.2 mg/dL (0.0-0.5); Bilirubin Total* 0.4 mg/dL (0.1-1.5)
[2024-01-16 04:22] LABS: Acetaminophen* < 10.0 ug/mL (10.0-30.0); Ethanol* 0.09 % (0.01-0.03); HCG Qualitative Serum* Negative (Negative); Salicylate* < 1.0 mg/dL (1.0-10)
[2024-01-16] MEDS: ONDANSETRON 2 MG/ML inj 4 MG IVP (04:25)
[2024-01-16 04:48] LABS: Amphetamine Screen Urine Negative (Negative); Barbiturate Screen Urine Negative (Negative); Benzodiazepines Screen Urine Negative (Negative); Cannabinoid Screen Urine POSITIVE (Negative); Cocaine Screen Urine Negative (Negative); Methadone Screen Urine Negative (Negative); Methamphetamines Screen Urine Negative (Negative); Opiate Screen Urine Negative (Negative); Oxycodone Screen Urine Negative (Negative); Phencyclidine Screen Urine Negative (Negative); Tricyclic Antidepressant Urine Negative (Negative)
== END 2024-01-16 13:57 | disposition home or self-care (01) ==
PROVIDERS: Family Medicine; Emergency Provider Student in an Organized Health Care Education/Training Program
DX: F10.10 Alcohol abuse, uncomplicated (principal); F32.A Depression, unspecified
CPT/HCPCS: 36415; 80076; 80143; 80179; 80306; 82077; 84703; 85025; 93005; 96361; 96374; 99283; 99284; J2405; J7030

== ENCOUNTER 2024-01-17 05:06 | Outpatient (CLI) | payer OTHER, SELFPAY | END 2024-01-17 05:07 | disposition home or self-care (01) | LOC: AMB 01-19 07:49 | PROVIDERS: Visit Provider Family Medicine | DX: F10.129 Alcohol abuse with intoxication, unspecified (principal) | CPT/HCPCS: A0425; A0429 ==

== ENCOUNTER 2024-01-17 05:31 | Emergency (ER) | payer OTHER, SELFPAY ==
[2024-01-17] VITALS (27 sets, daily range): BP systolic 87–111; BP diastolic 38–71; PULSE 75–97; RESP 20; TEMP 36.5; O2SAT 97–99
--- NOTE | 2024-01-17 05:34 | ED.GENADULT ---
HPI - General Adult General Time Seen by Provider: 05:34 <Ivy Elder MD - Last Filed: 01/24/24 02:46> Date Seen: 01/17/24 <Ivy Elder MD - Last Filed: 01/24/24 02:46> Chief complaint: Alcohol/Intoxication <Ivy Elder MD - Last Filed: 01/24/24 02:46> Stated complaint: Intoxicated <Ivy Elder MD - Last Filed: 01/24/24 02:46> Time Seen by Provider: 01/17/24 05:34 <Ivy Elder MD - Last Filed: 01/24/24 02:46> Source: patient, EMS, RN notes reviewed and old records reviewed <Ivy Elder MD - Last Filed: 01/24/24 02:46> Mode of arrival: EMS <Ivy Elder MD - Last Filed: 01/24/24 02:46> Limitations: no limitations <Ivy Elder MD - Last Filed: 01/24/24 02:46> History of Present Illness HPI narrative: Neeru is a 23-year-old [place] [employer] student who returns to the [facility] with EMS after she was found intoxicated. Neeru had been seen and discharge the morning of January 15 for intoxication, suicidal ideation and gesture with overdose of Tessalon Perles. She was monitored, had a DEC assessment and was discharged approximately 24 hours ago. Neeru returns as she called [facility] and she was found to be intoxicated once again. She does admit suicidal allergy to 1 of our nurses but is not talking to me now. She will only nod her head or shake her head no. She is tending to hold her hands in front of her face. She denies any physical pain or any trauma. She does endorse feeling shaky if she does not drink daily. She is refusing to tell me how much she drinks or how long she has been drinking. She denies taking any other medications or drugs this evening. She had a negative test yesterday. Patient had called [facility] 3 times last night. The initial 2 times it seemed that she did not want to be alone but did not want to come to the hospital. The 3rd time they responded she had burned a piece of paper in the room and thus EMS was activated and she was brought into the emergency room. <Ivy Elder MD - Last Filed: 01/24/24 02:46> Related Data Home medications: Home Medications Medication Instructions Recorded Confirmed No Known Home Medications 11/29/23 01/18/24 <Ivy Elder MD - Last Filed: 01/24/24 02:46> Allergies/adverse reactions: Allergies Allergy/AdvReac Type Severity Reaction Status Date / Time No Known Drug Allergies Allergy Verified 01/18/24 04:41 <Ivy Elder MD - Last Filed: 01/24/24 02:46> Review of Systems Status of ROS: Reports: unobtainable due to mental status <Ivy Elder MD - Last Filed: 01/24/24 02:46> PFSH PFSH Social History: Social History Smoking Status: Never smoker How often do you have a drink containing alcohol: 4 or more times a week How many standard drinks containing alcohol do you have on a typical day: 5 or 6 How often do you have six or more drinks on one occasion: Monthly AUDIT-C Alcohol total score: 8 Non-prescribed substance use: denies use <Ivy Elder MD - Last Filed: 01/24/24 02:46> Exam Narrative: Exam Narrative: Neeru is keeping her eyes closed and occasionally holding her hands to her face. She is tearful. Head is atraumatic normocephalic. Pupils are equal sluggishly reactive. No evidence of vomiting or dried vomit on her clothes. Heart with a tachycardic rate but normal rhythm. Lungs are clear. Abdomen soft. I do not note any evidence of trauma on her back. No CVA tenderness to percussion. She is moving all of her extremities. She is a obeying commands. She has to be reminded of what we are needing to do which is to change her into a gown for an exam. <Ivy Elder MD - Last Filed: 01/24/24 02:46> Const: Vital Signs, click to edit/add: Vital Signs - 24 hr 01/17/24 05:40 01/17/24 07:24 01/17/24 07:30 Temperature 97.7 F Pulse Rate 83 86 Respiratory Rate 20 Blood Pressure Blood Pressure [Ri ght Upper Arm] 111/60 Pulse Oximetry 97 97 97 Oxygen Delivery Me thod Room Air 01/17/24 07:31 01/17/24 07:45 01/17/24 07:46 Temperature Pulse Rate 85 86 85 Respiratory Rate Blood Pressure 95/38 L 89/45 L Blood Pressure [Ri ght Upper Arm] Pulse Oximetry 97 97 97 Oxygen Delivery Me thod 01/17/24 08:00 01/17/24 08:01 01/17/24 08:15 Temperature Pulse Rate 87 88 92 Respiratory Rate Blood Pressure 87/48 L Blood Pressure [Ri ght Upper Arm] Pulse Oximetry 97 97 97 Oxygen Delivery Me thod 01/17/24 08:16 01/17/24 08:17 01/17/24 08:30 Temperature Pulse Rate 97 84 80 Respiratory Rate Blood Pressure 89/56 L Blood Pressure [Ri ght Upper Arm] Pulse Oximetry 98 99 98 Oxygen Delivery Me thod 01/17/24 08:31 01/17/24 08:45 01/17/24 08:46 Temperature Pulse Rate 75 81 75 Respiratory Rate Blood Pressure 101/59 L 103/61 Blood Pressure [Ri ght Upper Arm] Pulse Oximetry 98 98 99 Oxygen Delivery Me thod 01/17/24 09:00 01/17/24 09:01 01/17/24 09:15 Temperature Pulse Rate 83 82 87 Respiratory Rate Blood Pressure 90/71 Blood Pressure [Ri ght Upper Arm] Pulse Oximetry 97 98 97 Oxygen Delivery Me thod 01/17/24 09:16 01/17/24 09:30 01/17/24 09:31 Temperature Pulse Rate 84 86 84 Respiratory Rate Blood Pressure 92/58 L 96/47 L Blood Pressure [Ri ght Upper Arm] Pulse Oximetry 97 97 98 Oxygen Delivery Me thod 01/17/24 09:45 01/17/24 09:46 01/17/24 10:00 Temperature Pulse Rate 85 83 83 Respiratory Rate Blood Pressure 90/53 L Blood Pressure [Ri ght Upper Arm] Pulse Oximetry 97 97 98 Oxygen Delivery Me thod 01/17/24 10:01 01/17/24 10:15 01/17/24 10:16 Temperature Pulse Rate 84 80 84 Respiratory Rate Blood Pressure 98/58 L 93/56 L Blood Pressure [Ri ght Upper Arm] Pulse Oximetry 98 98 98 Oxygen Delivery Me thod <Ivy Elder MD - Last Filed: 01/24/24 02:46> Vital Signs, click to edit/add: Vital Signs - 24 hr 01/17/24 05:40 01/17/24 07:24 01/17/24 07:30 Temperature 97.7 F Pulse Rate 83 86 Respiratory Rate 20 Blood Pressure Blood Pressure [Ri ght Upper Arm] 111/60 Pulse Oximetry 97 97 97 Oxygen Delivery Me thod Room Air 01/17/24 07:31 01/17/24 07:45 01/17/24 07:46 Temperature Pulse Rate 85 86 85 Respiratory Rate Blood Pressure 95/38 L 89/45 L Blood Pressure [Ri ght Upper Arm] Pulse Oximetry 97 97 97 Oxygen Delivery Me thod 01/17/24 08:00 01/17/24 08:01 01/17/24 08:15 Temperature Pulse Rate 87 88 92 Respiratory Rate Blood Pressure 87/48 L Blood Pressure [Ri ght Upper Arm] Pulse Oximetry 97 97 97 Oxygen Delivery Me thod 01/17/24 08:16 01/17/24 08:17 01/17/24 08:30 Temperature Pulse Rate 97 84 80 Respiratory Rate Blood Pressure 89/56 L Blood Pressure [Ri ght Upper Arm] Pulse Oximetry 98 99 98 Oxygen Delivery Me thod 01/17/24 08:31 01/17/24 08:45 01/17/24 08:46 Temperature Pulse Rate 75 81 75 Respiratory Rate Blood Pressure 101/59 L 103/61 Blood Pressure [Ri ght Upper Arm] Pulse Oximetry 98 98 99 Oxygen Delivery Me thod 01/17/24 09:00 01/17/24 09:01 01/17/24 09:15 Temperature Pulse Rate 83 82 87 Respiratory Rate Blood Pressure 90/71 Blood Pressure [Ri ght Upper Arm] Pulse Oximetry 97 98 97 Oxygen Delivery Me thod 01/17/24 09:16 01/17/24 09:30 01/17/24 09:31 Temperature Pulse Rate 84 86 84 Respiratory Rate Blood Pressure 92/58 L 96/47 L Blood Pressure [Ri ght Upper Arm] Pulse Oximetry 97 97 98 Oxygen Delivery Me thod 01/17/24 09:45 01/17/24 09:46 01/17/24 10:00 Temperature Pulse Rate 85 83 83 Respiratory Rate Blood Pressure 90/53 L Blood Pressure [Ri ght Upper Arm] Pulse Oximetry 97 97 98 Oxygen Delivery Me thod 01/17/24 10:01 01/17/24 10:15 01/17/24 10:16 Temperature Pulse Rate 84 80 84 Respiratory Rate Blood Pressure 98/58 L 93/56 L Blood Pressure [Ri ght Upper Arm] Pulse Oximetry 98 98 98 Oxygen Delivery Me thod <Summer Cooper MD - Last Filed: 01/17/24 14:53> Documenting provider has reviewed patient's vital signs: yes <Ivy Elder MD - Last Filed: 01/24/24 02:46> Course Course ED Course: Neeru returns today with obvious intoxication, tearfulness and continued suicidality. I suspect that she has been drinking daily as she does agree that she gets very shaky if she does not use alcohol. She has no family here when I ask. We will check the routine labs which include alcohol, drug screen, comprehensive panel and CBC. I had ordered 1 L of normal saline but the thought of the IV catheter is greatly distressing her. Nursing tries to changed the tape but Neeru is clearly distressed. We will remove the IV. She is not vomiting and she is protecting her airway at this time. Patient needs further interventions. Will likely have a repeat mental health assessment this morning. <Ivy Elder MD - Last Filed: 01/24/24 02:46> Reevaluation(s) Reevaluation #1: Patient has been sleeping soundly overnight. <Ivy Elder MD - Last Filed: 01/24/24 02:46> Time of Reevaluation #2: 13:52 <Summer Cooper MD - Last Filed: 01/17/24 14:53> Reevaluation #2: Patient has been resting, cooperative here. Telehealth has called for report on this patient, they will be assessing her shortly. 2:48 p.m.: Have just gotten off the phone with Stef the telehealth friction saw operator. He had seen her yesterday as well. He reports that the patient went back to her dorm after discharge yesterday felt hungry and then felt dehydrated. She decided to start drinking alcohol again. She at this time has no thoughts of suicide, she states she feels safe to go back to her dorm, does not want to be hospitalized. The friction saw operator does not feel that there is any mental health issues that require hospitalization at this time. She does have a outpatient therapy already scheduled. She denies any ingestion of any pills, the alcohol use was not to harm or hurt herself. She has been given resources for substance abuse intake evaluation, he will send those again today. It sounds as if the alcohol is causing behavioral issues. She needs to refrain from drinking. This will be stressed to her. <Summer Cooper MD - Last Filed: 01/17/24 14:53> Vital Signs Vital signs: Initial Vital Signs Temperature 97.7 F 01/17/24 05:40 Temperature Source Temporal Artery Scan 01/17/24 05:40 Respiratory Rate 20 01/17/24 05:40 Blood Pressure 111/60 01/17/24 05:40 Blood Pressure Mean 77 01/17/24 05:40 Pulse Oximetry 97 01/17/24 05:40 Oxygen Delivery Method Room Air 01/17/24 05:40 Vital Signs Temperature 97.7 F 01/17/24 05:40 Respiratory Rate 20 01/17/24 05:40 Blood Pressure 111/60 01/17/24 05:40 Pulse Oximetry 97 01/17/24 05:40 Oxygen Delivery Method Room Air 01/17/24 05:40 Temperature 97.7 F 01/17/24 05:40 Pulse Rate 84 01/17/24 10:16 Respiratory Rate 20 01/17/24 05:40 Blood Pressure 93/56 L 01/17/24 10:16 Pulse Oximetry 98 01/17/24 10:16 Oxygen Delivery Method Room Air 01/17/24 05:40 <Ivy Elder MD - Last Filed: 01/24/24 02:46> Initial Vital Signs Temperature 97.7 F 01/17/24 05:40 Temperature Source Temporal Artery Scan 01/17/24 05:40 Respiratory Rate 20 01/17/24 05:40 Blood Pressure 111/60 01/17/24 05:40 Blood Pressure Mean 77 01/17/24 05:40 Pulse Oximetry 97 01/17/24 05:40 Oxygen Delivery Method Room Air 01/17/24 05:40 Vital Signs Temperature 97.7 F 01/17/24 05:40 Respiratory Rate 20 01/17/24 05:40 Blood Pressure 111/60 01/17/24 05:40 Pulse Oximetry 97 01/17/24 05:40 Oxygen Delivery Method Room Air 01/17/24 05:40 Temperature 97.7 F 01/17/24 05:40 Pulse Rate 84 01/17/24 10:16 Respiratory Rate 20 01/17/24 05:40 Blood Pressure 93/56 L 01/17/24 10:16 Pulse Oximetry 98 01/17/24 10:16 Oxygen Delivery Method Room Air 01/17/24 05:40 <Summer Cooper MD - Last Filed: 01/17/24 14:53> Medications Administered Medications: Discontinued Medications Generic Name Dose Route Start Last Admin Trade Name Freq PRN Reason Stop Dose Admin Sodium Chloride 1,000 mls @ 1,000 mls/hr 01/17/24 05:35 01/17/24 09:16 0.9 % Sodium Chloride 1000 Ml IV 01/17/24 06:34 Infused .Q1H ERICA Infusion <Ivy Elder MD - Last Filed: 01/24/24 02:46> Discontinued Medications Generic Name Dose Route Start Last Admin Trade Name Freq PRN Reason Stop Dose Admin Sodium Chloride 1,000 mls @ 1,000 mls/hr 01/17/24 05:35 01/17/24 09:16 0.9 % Sodium Chloride 1000 Ml IV 01/17/24 06:34 Infused .Q1H ERICA Infusion <Summer Cooper MD - Last Filed: 01/17/24 14:53> Medical Decision Making MDM Narrative Medical decision making narrative: 1. Alcohol intoxication-alcohol level 0.15. Nursing staff able to speak with [facility] counselor who who notes that this patient has been passively suicidal since November and probably before that. Patient had started showing up to her counseling sessions intoxicated. In December patient was seen at [place] [id number] [address] [facility] where she spent 4-5 days with inpatient psychiatry. When she reached turn she was approximately okay for 2-3 weeks but now has been showing up at the meetings once again intoxicated. Yesterday taking the Tessalon Perles was the 1st time patient has made a suicidal gesture. Patient has been allowed to sleep here in the emergency room and we will have her undergo DEC evaluation once again as her alcohol level decreases. 2. Suicidality-initially this has been ongoing rather passively but now Neeru has had a suicidal gesture and returns within 24 hours after discharge from [facility]. She has been voluntary and cooperative for the most part while in the ED. 3. Alcohol intoxication- alcohol level is 0.15 3. Disposition-mental health assessment. She is definitely in need of psychiatric support. Her LFTs are within normal limits and that is reassuring. Lipase is also normal so there is no evidence of hepatitis or pancreatitis at this time. Salicylates and acetaminophen are negative. HCG was negative yesterday. This case will be signed out to my partner Dr. Quintero, mental health assessment has been ordered. <Ivy Elder MD - Last Filed: 01/24/24 02:46> Medical Records Medical records reviewed: Yes I reviewed the patient's medical records <Ivy Elder MD - Last Filed: 01/24/24 02:46> Lab Data Lab results reviewed: Yes I reviewed the patient's lab results <Ivy Elder MD - Last Filed: 01/24/24 02:46> Labs: Lab Results 01/17/24 01/17/24 01/17/24 Range/Units 05:35 06:11 10:38 WBC 9.99 (4.50-11.00) K/uL RBC 4.63 (4.00-5.20) m/uL Hgb 13.3 (12.0-16.0) gm/dL Hct 39.9 (33.0-51.0) % MCV 86 (80-100) fL MCH 29 (26-34) pg MCHC 33 (32-36) gm/dL RDW Coeff of Wes 13.9 (11.5-15.5) % Plt Count 264 (140-440) K/uL Neut % (Auto) 53.1 (42.0-72.0) % Lymph % (Auto) 38.8 (20-44) % [place] % (Auto) 5.7 (0.0-11.0) % Eos % (Auto) 1.9 (0.0-7.0) % Baso % (Auto) 0.2 (0.0-3.0) % Neut # (Auto) 5.30 (1.7-7.0) K/uL Lymph # (Auto) 3.88 H (0.90-2.90) K/uL [place] # (Auto) 0.60 (0.00-0.90) K/UL Eos # (Auto) 0.19 (0.00-0.50) K/uL Baso # (Auto) 0.02 (0.00-0.30) K/uL Abs Immat Gran (auto) 0.03 (0.00-0.30) K/uL Imm/Tot Granulo (auto) 0.3 % Sodium 140 (135-149) mmol/L Potassium 4.4 (3.6-5.1) mmol/L Chloride 106 (96-114) mmol/L Carbon Dioxide 25 (20-32) mmol/L Anion Gap 9 (7-15) mEq/L BUN 4 L (5-24) mg/dL Creatinine 0.7 (0.5-1.5) mg/dL Estimated GFR 126 ml/min Glucose 101 (60-115) mg/dL Calcium 9.3 (8.4-10.6) mg/dL Total Bilirubin 0.5 (0.1-1.5) mg/dL AST 26 (12-35) U/L ALT 13 (4-35) U/L Alkaline Phosphatase 59 (40-150) U/L Total Protein 8.2 (6.0-8.3) g/dL Albumin 4.7 (3.3-5.0) g/dL Lipase 111 (23-300) U/L Salicylates < 1.0 L (1.0-10) mg/dL Urine Opiates Screen Negative (Negative) Ur Oxycodone Screen Negative (Negative) Urine Methadone Screen Negative (Negative) Acetaminophen < 10.0 L (10.0-30.0) ug/mL Ur Barbiturates Screen Negative (Negative) U Tricyclic Antidepress Negative (Negative) Ur Phencyclidine Scrn Negative (Negative) Ur Amphetamines Screen Negative (Negative) U Methamphetamines Scrn Negative (Negative) U Benzodiazepines Scrn Negative (Negative) Urine Cocaine Screen Negative (Negative) U Marijuana (THC) Screen POSITIVE A (Negative) Ur Drug Screen Comment See Note Ethyl Alcohol 0.15 H (0.01-0.03) % Lab Acknowledgement Test Added <Ivy A Elder, MD - Last Filed: 01/24/24 02:46> Lab Results 01/17/24 01/17/24 01/17/24 Range/Units 05:35 06:11 10:38 WBC 9.99 (4.50-11.00) K/uL RBC 4.63 (4.00-5.20) m/uL Hgb 13.3 (12.0-16.0) gm/dL Hct 39.9 (33.0-51.0) % MCV 86 (80-100) fL MCH 29 (26-34) pg MCHC 33 (32-36) gm/dL RDW Coeff of Wes 13.9 (11.5-15.5) % Plt Count 264 (140-440) K/uL Neut % (Auto) 53.1 (42.0-72.0) % Lymph % (Auto) 38.8 (20-44) % [place] % (Auto) 5.7 (0.0-11.0) % Eos % (Auto) 1.9 (0.0-7.0) % Baso % (Auto) 0.2 (0.0-3.0) % Neut # (Auto) 5.30 (1.7-7.0) K/uL Lymph # (Auto) 3.88 H (0.90-2.90) K/uL [place] # (Auto) 0.60 (0.00-0.90) K/UL Eos # (Auto) 0.19 (0.00-0.50) K/uL Baso # (Auto) 0.02 (0.00-0.30) K/uL Abs Immat Gran (auto) 0.03 (0.00-0.30) K/uL Imm/Tot Granulo (auto) 0.3 % Sodium 140 (135-149) mmol/L Potassium 4.4 (3.6-5.1) mmol/L Chloride 106 (96-114) mmol/L Carbon Dioxide 25 (20-32) mmol/L Anion Gap 9 (7-15) mEq/L BUN 4 L (5-24) mg/dL Creatinine 0.7 (0.5-1.5) mg/dL Estimated GFR 126 ml/min Glucose 101 (60-115) mg/dL Calcium 9.3 (8.4-10.6) mg/dL Total Bilirubin 0.5 (0.1-1.5) mg/dL AST 26 (12-35) U/L ALT 13 (4-35) U/L Alkaline Phosphatase 59 (40-150) U/L Total Protein 8.2 (6.0-8.3) g/dL Albumin 4.7 (3.3-5.0) g/dL Lipase 111 (23-300) U/L Salicylates < 1.0 L (1.0-10) mg/dL Urine Opiates Screen Negative (Negative) Ur Oxycodone Screen Negative (Negative) Urine Methadone Screen Negative (Negative) Acetaminophen < 10.0 L (10.0-30.0) ug/mL Ur Barbiturates Screen Negative (Negative) U Tricyclic Antidepress Negative (Negative) Ur Phencyclidine Scrn Negative (Negative) Ur Amphetamines Screen Negative (Negative) U Methamphetamines Scrn Negative (Negative) U Benzodiazepines Scrn Negative (Negative) Urine Cocaine Screen Negative (Negative) U Marijuana (THC) Screen POSITIVE A (Negative) Ur Drug Screen Comment See Note Ethyl Alcohol 0.15 H (0.01-0.03) % Lab Acknowledgement Test Added <Summer Cooper MD - Last Filed: 01/17/24 14:53> ECG Data Attestation: I personally reviewed and interpreted this ECG as follows: <Ivy Elder MD - Last Filed: 01/24/24 02:46> Interpretation: EKG by my read shows sinus rhythm at a rate of 95. No acute ST or T-wave changes are noted. Normal QT and OR intervals. <Ivy Elder MD - Last Filed: 01/24/24 02:46> Discharge Plan Discharge Clinical Impression: Alcohol abuse, Depression <Ivy Elder MD - Last Filed: 01/24/24 02:46> Patient Disposition: Home, Self-Care <Ivy Elder MD - Last Filed: 01/24/24 02:46> Condition: Improved <Ivy Elder MD - Last Filed: 01/24/24 02:46> Instructions: Abuse of Alcohol (ED), Alcohol Use Disorder (ED), Suicide Prevention (ED) <Ivy Elder MD - Last Filed: 01/24/24 02:46> Additional Instructions: You really need to not drink alcohol, can worsen and confound mental health issues. The alcohol is becoming problematic, you may need to consider treatment for this if you continue to drink. The telehealth friction saw operator has provided information on this, please review this and consider seeking evaluation for your alcohol use. Continue with your therapy at college. If you should feel increasing suicidal ideation, it is always recommended that you seek medical evaluation. <Ivy Elder MD - Last Filed: 01/24/24 02:46> Activity Level: Activity as Tolerated <Ivy Elder MD - Last Filed: 01/24/24 02:46> Activity as Tolerated <Summer Cooper MD - Last Filed: 01/17/24 14:53> Discharge Diet: Regular <Ivy Elder MD - Last Filed: 01/24/24 02:46> Regular <Summer Cooper MD - Last Filed: 01/17/24 14:53> Prescriptions: No Action No Known Home Medications <Ivy Elder MD - Last Filed: 01/24/24 02:46> Follow Up/Referrals: Provider,Not a Local [Primary Care Provider] - <Ivy Elder MD - Last Filed: 01/24/24 02:46> Stand Alone Forms: MyHealth Info Instructions <Ivy Elder MD - Last Filed: 01/24/24 02:46>
[2024-01-17] MEDS: 0.9 % SODIUM CHLORIDE 1000 ml 1,000 ML IV (05:42)
[2024-01-17 05:47] LABS: Basophils Absolute Auto 0.02 K/uL (0.00-0.30); Basophils Percent Auto 0.2 % (0.0-3.0); Eosinophils Absolute Auto 0.19 K/uL (0.00-0.50); Eosinophils Percent Auto 1.9 % (0.0-7.0); Hematocrit 39.9 % (33.0-51.0); Hemoglobin* 13.3 gm/dL (12.0-16.0); Immature Granulocytes Abs Auto 0.03 K/uL (0.00-0.30); Immature Granulocytes Pct Auto 0.3 %; Lymphocytes Absolute Auto 3.88 K/uL (0.90-2.90); Lymphocytes Percent Auto 38.8 % (20-44); Mean Corpuscular HGB Conc 33 gm/dL (32-36); Mean Corpuscular Hemoglobin 29 pg (26-34); Mean Corpuscular Volume 86 fL (80-100); Monocytes Percent Auto 5.7 % (0.0-11.0); Neutrophils Percent Auto 53.1 % (42.0-72.0); Platelet Count* 264 K/uL (140-440); RDW Coefficient of Variation % 13.9 % (11.5-15.5); Red Blood Count 4.63 m/uL (4.00-5.20); White Blood Count* 9.99 K/uL (4.50-11.00)
--- NOTE | 2024-01-17 05:57 | PC.NURSE ---
IV pulled per Dr Elder
[2024-01-17 05:58] LABS: Slide Review Reflex No
[2024-01-17 06:01] LABS: Albumin* 4.7 g/dL (3.3-5.0)
[2024-01-17 06:02] LABS: Chloride* 106 mmol/L (96-114); Potassium* 4.4 mmol/L (3.6-5.1); Sodium* 140 mmol/L (135-149)
[2024-01-17 06:04] LABS: Alkaline Phosphatase* 59 U/L (40-150); Anion Gap 9 mEq/L (7-15); Aspartate Amino Transferase* 26 U/L (12-35); Bilirubin Total* 0.5 mg/dL (0.1-1.5); Carbon Dioxide* 25 mmol/L (20-32); Creatinine* 0.7 mg/dL (0.5-1.5); Estimated Glomerular Filt Rate 126 ml/min; Total Protein* 8.2 g/dL (6.0-8.3)
[2024-01-17 06:05] LABS: Alanine Aminotransferase* 13 U/L (4-35); Blood Urea Nitrogen* 4 mg/dL (5-24); Calcium* 9.3 mg/dL (8.4-10.6); Glucose* 101 mg/dL (60-115); Lipase* 111 U/L (23-300)
[2024-01-17 06:14] LABS: Ethanol* 0.15 % (0.01-0.03)
[2024-01-17 06:21] LABS: Acetaminophen* < 10.0 ug/mL (10.0-30.0); Salicylate* < 1.0 mg/dL (1.0-10)
[2024-01-17 11:13] LABS: Amphetamine Screen Urine Negative (Negative); Barbiturate Screen Urine Negative (Negative); Benzodiazepines Screen Urine Negative (Negative); Cannabinoid Screen Urine POSITIVE (Negative); Cocaine Screen Urine Negative (Negative); Methadone Screen Urine Negative (Negative); Methamphetamines Screen Urine Negative (Negative); Opiate Screen Urine Negative (Negative); Oxycodone Screen Urine Negative (Negative); Phencyclidine Screen Urine Negative (Negative); Tricyclic Antidepressant Urine Negative (Negative)
== END 2024-01-17 15:29 | disposition home or self-care (01) ==
PROVIDERS: Emergency Provider Family Medicine
DX: F10.129 Alcohol abuse with intoxication, unspecified (principal); R45.851 Suicidal ideations; F32.A Depression, unspecified
CPT/HCPCS: 36415; 80053; 80143; 80179; 80306; 82077; 83690; 85025; 93005; 96360; 99284; J7030

== ENCOUNTER 2024-01-18 04:03 | Outpatient (CLI) | payer OTHER, SELFPAY | END 2024-01-18 04:04 | disposition home or self-care (01) | LOC: AMB 01-19 07:51 | PROVIDERS: Visit Provider Family Medicine | DX: F10.129 Alcohol abuse with intoxication, unspecified (principal); R10.9 Unspecified abdominal pain | CPT/HCPCS: A0425; A0429 ==

== ENCOUNTER 2024-01-18 04:31 | Emergency (ER) | payer OTHER, SELFPAY ==
[2024-01-18] VITALS (14 sets, daily range): BP systolic 93–124; BP diastolic 57–70; PULSE 57–92; RESP 20; TEMP 36.5; O2SAT 97–100
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
[2024-01-18] MEDS: 0.9 % SODIUM CHLORIDE 1000 ml 1,000 ML IV (05:07)
[2024-01-18] MEDS: ONDANSETRON 2 MG/ML inj 4 MG IVP (05:08)
[2024-01-18 05:12] LABS: Lactate* 2.6 mmol/L (0.5-1.9)
[2024-01-18 05:13] LABS: Basophils Absolute Auto 0.05 K/uL (0.00-0.30); Basophils Percent Auto 0.5 % (0.0-3.0); Eosinophils Absolute Auto 0.14 K/uL (0.00-0.50); Eosinophils Percent Auto 1.5 % (0.0-7.0); Hematocrit 39.9 % (33.0-51.0); Hemoglobin* 13.5 gm/dL (12.0-16.0); Immature Granulocytes Abs Auto 0.02 K/uL (0.00-0.30); Immature Granulocytes Pct Auto 0.2 %; Lymphocytes Absolute Auto 3.12 K/uL (0.90-2.90); Lymphocytes Percent Auto 34.2 % (20-44); Mean Corpuscular HGB Conc 34 gm/dL (32-36); Mean Corpuscular Hemoglobin 29 pg (26-34); Mean Corpuscular Volume 86 fL (80-100); Monocytes Percent Auto 5.5 % (0.0-11.0); Neutrophils Percent Auto 58.1 % (42.0-72.0); Platelet Count* 322 K/uL (140-440); RDW Coefficient of Variation % 13.7 % (11.5-15.5); Red Blood Count 4.65 m/uL (4.00-5.20); White Blood Count* 9.13 K/uL (4.50-11.00)
[2024-01-18 05:16] LABS: Slide Review Reflex No
[2024-01-18 05:33] LABS: Chloride* 105 mmol/L (96-114); Potassium* 3.6 mmol/L (3.6-5.1); Sodium* 138 mmol/L (135-149)
[2024-01-18 05:36] LABS: Anion Gap 13 mEq/L (7-15); Blood Urea Nitrogen* 5 mg/dL (5-24); Carbon Dioxide* 20 mmol/L (20-32); Creatinine* 0.6 mg/dL (0.5-1.5); Estimated Glomerular Filt Rate 131 ml/min; Ethanol* 0.16 % (0.01-0.03); Glucose* 82 mg/dL (60-115)
[2024-01-18 05:37] LABS: Calcium* 8.9 mg/dL (8.4-10.6)
[2024-01-18 05:38] LABS: Acetaminophen* < 10.0 ug/mL (10.0-30.0); Salicylate* < 1.0 mg/dL (1.0-10)
[2024-01-18 05:39] LABS: HCG Qualitative Serum* Negative (Negative)
[2024-01-18 06:02] LABS: SARS PCR* Negative SARS-CoV-2 (Negative)
[2024-01-18] MEDS: LACTATED RINGERS 1000 ML 1,000 ML 500 ML IV (06:28)
== END 2024-01-18 11:37 | disposition home or self-care (01) ==
PROVIDERS: Emergency Provider Family Medicine
DX: F10.10 Alcohol abuse, uncomplicated (principal); F32.A Depression, unspecified
CPT/HCPCS: 36415; 80048; 80143; 80179; 80306; 82077; 83605; 84703; 85025; 87635; 96361; 96374; 99283; 99284; J2405; J7030; J7120

== ENCOUNTER 2025-11-03 18:12 | Emergency (ER) | payer OTHER, SELFPAY ==
--- OUTSIDE RECORDS SUMMARY | 2025-11-03 18:15 | XMS_ITS | Clinical Summary ---
Author Organization [employer] [facility] Address [address] [place] [id number] Care Team Providers Care Variety Performer Name Role Phone None Primary Care Provider Unavailabl e Allergies No known active allergies Medications * This document contains information received from the source organization and may not represent a complete record from that organization. MedicationSigDispense QuantityRefillsLast FilledStart DateEnd DateStatus naltrexone (REVIA) 50 mg tablet Take 50 mg by mouth once daily.Active FLUoxetine (PROZAC) 20 mg capsule Indications:Major depressive disorder, recurrent, moderate (HC)Take 1 Capsule (20 mg) by mouth once daily.12/17/2023ctive Active Problems ProblemNoted DateDiagnosed DateHistory of jonmhmmqwk41/13/2024djustment disorder with mixed anxiety and depressed mood12/17/2023lcohol abuse12/17/2023 Resolved Problems ProblemNoted DateDiagnosed DateResolved DateSuicidal drbfnouj15/13/2024 12/17/2023 Immunizations ImmunizationAdministration DatesNext DueInfluenza, [id number] Social History Tobacco UseTypesPacks/DayYears UsedDateSmoking Tobacco: Some DaysCigarettes1.9 Started: 12/11/2023assive Smoke Exposure: CurrentSmokeless Tobacco: Current Snuff Tobacco Cessation:Ready to Q uit: Yes; Counseling Given: Not Answered Alcohol UseStandard Drinks/TyeqCaziunvsPco72 (1 standard drink = 0.6 oz pure alcohol)2 drinks a day for the past weekPHQ-2AnswerDate RecordedPHQ-2 TOTAL [id number] ConnectionsAnswerDate RecordedDo you often feel lonely or isolated from those around you?lcohol UseAnswerDate RecordedHow often do you have a drink containing alcohol?How many drinks containing alcohol do you have on a typical day when you are drinking?0 12/14/2023How often do you have five or more drinks on one occasion? Financial Resource StrainAnswerDate RecordedDifficulty of Paying Living Expenses ifficulty of Paying Living ExpensesNot on file12/14/2023Food InsecurityAnswerDate RecordedDo you worry your food will run out before you are able to buy more?Transportation NeedsAnswerDate RecordedDoes lack of transportation keep you from medical appointments?oes lack of transportation keep you from work, meetings or getting things that you need?1 12/13/2023Housing StabilityAnswerDate RecordedWhat is your housing situation today?Interpersonal SafetyAnswerDate RecordedAre you being hit, kicked, pushed or yelled at (see row info)?No01/08/2024Interpersonal Safety Abuse 12 - 18Not on file01/08/2024Interpersonal Safety Ambulatory Vulnerability Not on file01/08/2024UtilitiesAnswerDate RecordedDo you have trouble paying for utilities (for example, heat, electricity, water, phone)?regnant CommentsNoSex and Gender InformationValueDate RecordedSex Assigned at BirthNot on fileLegal BodFhukzf60/09/2024 5:54 PM CSTGender IdentityNot on fileSexual OrientationNot on file Last Filed Vital Signs Vital SignReadingTime TakenCommentsBlood Vlpfyzob410/9101/08/2024 5:48 PM INSTRUCTOR MODELING Igowr66050/06/2024 5:48 PM VPNYsscsyjaakd81.3 ??C (99.1 ??F)01/08/2024 5:48 PM CSTRespiratory Lsmm492901/08/2024 5:48 PM CSTOxygen Blhosdwuer58%01/08/2024 5:48 PM CSTInhaled Oxygen Concentration--Frswgs01.5 kg (162 lb)01/08/2024 5:48 PM INSTRUCTOR MODELING Xixsac475.9 cm (5' 1)01/08/2024 5:48 PM CSTBody Mass Index30.61001/08/2024 5:48 PM INSTRUCTOR MODELING Plan of Treatment Health MaintenanceDue DateLast DoneCommentsTetanus dchzyif4109/15/2013HIV for age 15-6509/15/2017HPV series for age 9-45 (1 - 3-dose series)2017BMI (ht and wt on same day) for age 18+2020Hepatitis C screening for age 18-79 2020Hepatitis B series for 19+ (1 of 3 - 19+ 3-dose series)2021 Pneumococcal series for age 6-49 (1 of 2 - PCV)2021ap test for age 21-65 2023epression screening for age 12+/OVID-19 vaccine series ( - 2024- season)2025Influenza Vaccine (#1) Insurance * Guarantor: Neeru Palacio TypeRelation to PatientDate of BirthPhone Billing AddressPersonal/NambvhXwnj[address] [facility] [place] [address] Advance Directives * Full Code (Latest Code Status on File) Date ActivatedDate InactivatedComments12/14/2023 1:02 AM12/17/2023 3:51 PMQuestion AnswerCommentsCode Status Discussion:* Not Discussed Care Teams Team MemberRelationshipSpecialtyStart DateEnd Date None . PCP - General12/13/23
--- NOTE | 2025-11-03 18:24 | ED.GENADULT ---
HPI - General Adult General Chief complaint: Extremity Pain/Injury, Upper Stated complaint: R shoulder injury Time Seen by Provider: 11/03/25 18:16 History of Present Illness HPI narrative: This 25-year-old female comes in with pain in her right shoulder. She states that she fell out of bed last night onto her right shoulder. She did not have immediate pain at the time of that fall but through the day today is increasing pain in her right shoulder. She is able to move her arm but states that there is worsening pain when getting above 90? elevation. She did not hit her head or have report of any other injury Related Data Home Medications ?Medication ?Instructions ?Recorded ?Confirmed No Known Home Medications 11/29/23 11/03/25 Allergies Allergy/AdvReac Type Severity Reaction Status Date / Time No Known Drug Allergies Allergy Verified 11/03/25 18:22 Review of Systems Status of ROS: Reports: 10 or more systems reviewed and unremarkable except as noted in History and below Narrative: Constitutional: No fevers, no weight gain or loss. Eyes: No discharge. No vision changes. HENT: No congestion, no sore throat, no ear pain. Cardiovascular: No chest pain, no palpitations. Respiratory: No shortness of breath, no wheezes, no cough. Gastrointestinal: No abdominal pain, no vomiting, no diarrhea. Genitourinary: No dysuria, no hematuria. Musculoskeletal: She is able to raise her right arm up but does so with pain. Skin: No rashes, no pruritis. Neurological: No dizziness, weakness, sensory change, speech change. Endo/Heme/Allergies: No bruising or bleeding. No polydipsia. Pysch: no suicidality, no anxiety, no insomnia. All other systems reviewed and are negative. [facility] Social History Smoking Status: Never smoker How often do you have a drink containing alcohol: 4 or more times a week How many standard drinks containing alcohol do you have on a typical day: 5 or 6 How often do you have six or more drinks on one occasion: Monthly AUDIT-C Alcohol total score: 8 Non-prescribed substance use: denies use Exam Narrative: Exam Narrative: Constitutional: Well-developed, well-nourished, no acute distress. HEENT: Normocephalic, atraumatic. Neck: Normal range of motion. Nontender. Supple. Heart: Regular. No murmurs. Normal rate. Intact distal pulses. Lungs: Clear to auscultation. No chest discomfort. No wheezes, rhonchi, or rales. Abdomen: Normal bowel sounds. Nontender. No rebound tenderness. Genitalia: Deferred. Back: No midline tenderness. Normal range of motion. Extremities: Diffuse pain in the right shoulder region. No point tenderness when palpating along bony structures. She is able to raise her arm up above her head but has increasing pain when getting above 90?. Skin: Intact. No rash. Warm. No erythema or pallor. Neurologic: No altered sensation. No weakness. Alert and oriented. Psychiatric: No suicidality. No anxiety or depression. No insomnia. Nursing notes and vitals signs are reviewed. Const: Vital Signs, click to edit/add: Vital Signs - 24 hr 11/03/25 18:25 Temperature 98.2 F Pulse Rate [Pulse Oximeter] 98 Respiratory Rate 20 Blood Pressure [Le ft Upper Arm] 136/76 Pulse Oximetry 99 Oxygen Delivery Me thod Room Air Course Vital Signs Vital signs: Initial Vital Signs Temperature 98.2 F 11/03/25 18:25 Temperature Source Temporal Artery Scan 11/03/25 18:25 Pulse Rate 98 11/03/25 18:25 Respiratory Rate 20 11/03/25 18:25 Blood Pressure 136/76 11/03/25 18:25 Blood Pressure Mean 96 11/03/25 18:25 Pulse Oximetry 99 11/03/25 18:25 Oxygen Delivery Method Room Air 11/03/25 18:25 Vital Signs Temperature 98.2 F 11/03/25 18:25 Pulse Rate 98 11/03/25 18:25 Respiratory Rate 20 11/03/25 18:25 Blood Pressure 136/76 11/03/25 18:25 Pulse Oximetry 99 11/03/25 18:25 Oxygen Delivery Method Room Air 11/03/25 18:25 Temperature 98.2 F 11/03/25 18:25 Pulse Rate 98 11/03/25 18:25 Respiratory Rate 20 11/03/25 18:25 Blood Pressure 136/76 11/03/25 18:25 Pulse Oximetry 99 11/03/25 18:25 Oxygen Delivery Method Room Air 11/03/25 18:25 Medical Decision Making MDM Narrative Medical decision making narrative: This patient has an injury to her right shoulder as described above. Her range of motion and exam along with a mechanism of injury are not showing suspicion for fracture, dislocation, AC separation, or rotator cuff injury. I did discuss x-ray imaging with the patient and she declined any imaging for now. She did receive a sling and and [employer] prescription for Toradol. I encouraged her to increase activity as tolerated. Discharge Plan Discharge Clinical Impression: Injury of shoulder, right Patient Disposition: Home, Self-Care Condition: Stable Additional Instructions: wear sling and use medications as needed and directed. Increase activity as tolerated. Follow up with MD return if worsening. Prescriptions: No Action No Known Home Medications Follow Up/Referrals: Provider,Not a Local [Primary Care Provider, Family Practice] Stand Alone Forms: [employer] [facility] [place] Info Instructions
[2025-11-03 18:25] VITALS: BP 136/76; PULSE 98; RESP 20; TEMP 36.8; O2SAT 99; BMI 33.7
== END 2025-11-03 19:01 | disposition home or self-care (01) ==
LOC: ED 18:45
PROVIDERS: Emergency Provider Emergency Medicine Emergency Medical Services
DX: S49.91XA Unspecified injury of right shoulder and upper arm, initial encounter (principal); W06.XXXA Fall from bed, initial encounter
CPT/HCPCS: 99282; 99283; 99284